=== PATIENT | female | born 2000 | race Caucasian/White ===

== ENCOUNTER 2021-02-19 12:07 | Inpatient (IN) | payer MEDICAID, SELFPAY ==
[2021-02-19 14:00] VITALS: BP 130/78; PULSE 82; RESP 18; TEMP 36.6; O2SAT 98
[2021-02-19 15:13] VITALS: BMI 15.4
--- NOTE | 2021-02-19 19:33 | PC.NURSE ---
PT NOTED TO BE WANDERING IN AND OUT OF OTHER PT'S ROOMS. PT IN 153-1 VOLUNTEERED TO ALLOW THIS PT TO MOVE INTO 153-2 SO SHE WONT HAVE TO BE ALONE. PT THEN MOVED TO 153-2.
[2021-02-19] MEDS: OLANZapine 5 mg ODT PO (20:19)
[2021-02-19 20:29] VITALS: BP 133/80; PULSE 66; RESP 17; TEMP 36.9; O2SAT 96
[2021-02-20 06:00] VITALS: RESP 15
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
[2021-02-20 14:00] VITALS: BP 99/65; PULSE 93; RESP 18; TEMP 37; O2SAT 96
--- NOTE | 2021-02-20 15:40 | PC.NURSE ---
pt snuck out the acute door when a visitor was leaving the unit. staff immediately responded. pt was in the entryway and stood in a corner by the bathroom acting very withdrawn. staff had to escort pt back onto the acute side unit with much encouragement
--- NOTE | 2021-02-20 16:35 | PC.NURSE ---
Patient was found naked in an empty bed in another patients room reading a book. Patient was easily redirected and moved to a room closer to the nurses station. Nurse will continue to monitor.
[2021-02-20] MEDS: OLANZapine 5 mg ODT PO (19:21)
[2021-02-20 19:44] VITALS: BP 108/71; PULSE 85; RESP 18; TEMP 36.8; O2SAT 98
[2021-02-21 06:00] VITALS: BP 117/84; PULSE 80; RESP 17; TEMP 37.1; O2SAT 97
--- NOTE | 2021-02-21 06:18 | PM.NPN ---
Subjective NPU Subjective: Interval history: Francia continues to struggle with her behaviors. Yesterday late afternoon she had a incident where she intentionally fell but the fall was absolutely witnessed and totally purposeful. Today she pulled a fire alarm. She continues to have these help seeking, help rejecting behaviors has had at least 2 events where she tried to enter areas where she was not supposed to be try to follow a visitor out. Very attention seeking behavior dermatitis given to her to discuss the circumstances she gets very Mousie and then says very little except maybe I am sorry. She shook her head no to possible discussion of mood stabilizer/antipsychotic. Mental Status Exam MSE Comments: This is an extremely underweight white female in hospital scrubs with limited grooming and abnormal eye contact. With eyes staring fixed at times. No abnormal movements except for significant psychomotor retardation. Mostly uncooperative with exam in moderate distress at times. Speech was limited and decreased rate and volume. Mood answered with barely audible unclear responses, affect odd. Thought process mostly organized. Thought content: Patient currently denying suicidal or homicidal ideation, there were no delusions reported but she seemed guarded, paranoid and may be having persecutory thinking, she denied auditory visual hallucinations but did at times appear to be attending to internal stimuli. Attention and concentration were limited and memory was unreliable but none were formally tested. She is alert and oriented to person and place. Insight and judgment are impaired and impulse control is impaired. Vitals/I&O/Wt Last Vital Signs Temp 98.3 F 02/20/21 19:44 Pulse 85 02/20/21 19:44 Resp 18 02/20/21 19:44 BP 108/71 02/20/21 19:44 Pulse Ox 98 02/20/21 19:44 Weight last 48 hrs Weight 40.823 kg A&P Assessment and plan (1) Borderline personality disorder: Status: Acute Additional A&P Information (1) Psychosis: (2) Altered mental status: (3) Partner relational problem: Additional A&P Information This is a 20-year-old white female with a recent history of multiple ER visits with sometimes strange behaviors and sometimes very little time in between the visits with strange behavior noted out in the community including attempts to get into vehicles at [employer] and walking in and out of traffic who presents acting bizarrely on the unit. 1. Continue current medication. Will explore starting an antipsychotic/mood stabilizer with her permission. 2. Encourage individual, group and milieu therapy. 3. Continue every 15 minute checks for safety. May have to initiate one-to-one if she continues to show poor judgment. 4. Explore whether there is a drug-induced element to this. Involuntary Hold Information 96 Hour Hold: 96 Hour Involuntary Admission: Yes 96 Hour Hold Ending Date: 02/23/21 96 Hour Hold Ending Time: 12:22 Attestations NPU Medical Necessity Statement*: Inpatient hospitalization is medically necessary and the clinically appropriate intervention at this time. Will monitor medications and make changes as indicated. Likely length of stay 3 to 5 days. Coding Level of Care Code Acute Broadcast Operations Technician for Oliver Fwd Diagnoses Borderline personality disorder F60.3
[2021-02-21 14:00] VITALS: BP 93/60; PULSE 104; RESP 17; TEMP 36.3; O2SAT 98
--- NOTE | 2021-02-21 15:19 | PC.NURSE ---
Patient Behavior At approximately 1500 patient pulled the fire alarm in the day room. Requested a sitter from warehouse distribution associate.
[2021-02-21] MEDS: sulfamethoxazole-trimeth DS 160-800 mg Tablet 1 TAB PO (18:04)
[2021-02-21] MEDS: sertraline 50 mg Tablet PO (20:03)
[2021-02-21 20:05] VITALS: BP 90/52; PULSE 67; RESP 15; TEMP 37; O2SAT 93
[2021-02-22 06:00] VITALS: BP 104/68; PULSE 79; RESP 16; TEMP 36.7; O2SAT 92
[2021-02-22] MEDS: sertraline 50 mg Tablet PO (08:56)
[2021-02-22] MEDS: sulfamethoxazole-trimeth DS 160-800 mg Tablet 1 TAB PO ×2 (08:56→20:13)
--- NOTE | 2021-02-22 11:49 | P.PN_ITS ---
Subjective NPU Subjective: Interval history: Melissa presented to the appointment wrapped in her blanket and being fairly isolative and occluded from the conversation. She continued the behavior of talking just audibly but not loud enough that the conversation can have a normal flow of a conversation. She had to be asked multiple times to repeat something, had to be asked multiple times to speak loud enough that what she said could be heard. We discussed our concerns and the possibility of starting a mood stabilizer/antipsychotic help with her situation and she understood and agreed proceed as documented in this note. She continued to have episodes where she got tearful and was saying she was sorry. Mental Status Exam MSE Comments: This is an extremely underweight white female in hospital scrubs with limited grooming and abnormal eye contact. With eyes staring fixed at times. No abnormal movements except for significant psychomotor retardation. Mostly uncooperative with exam in out to moderate distress at times. Speech was limited and decreased rate and volume. Mood answered with barely audible I do not know, affect odd. Thought process mostly organized. Thought content: Yuki ent currently denying suicidal or homicidal ideation, there were no delusions reported but she seemed guarded, paranoid and may be having persecutory thinking, she denied auditory visual hallucinations but did at times appear to be attending to internal stimuli. Attention and concentration were limited and memory was unreliable but none were formally tested. She is alert and oriented to person and place. Insight and judgment are impaired and impulse control is impaired. Vitals/I&O/Wt Last Vital Signs Temp 98.1 F 02/22/21 06:00 Pulse 79 02/22/21 06:00 Resp 16 02/22/21 06:00 BP 104/68 02/22/21 06:00 Pulse Ox 92 02/22/21 06:00 A&P Assessment and plan (1) Cluster B personality disorder: Status: Acute Additional A&P Information (2) Borderline personality disorder: (3) Psychosis: (4) Altered mental status: (5) Partner relational problem: Additional A&P Information This is a 20-year-old white female with a recent history of multiple ER visits with sometimes strange behaviors and sometimes very little time in between the visits with strange behavior noted out in the community including attempts to get into vehicles at [employer] and walking in and out of traffic who presents acting bizarrely on the unit. 1. Continue current medication. Will start Abilify 10 mg p.o. every morning for psychosis and or mood stabilization. 2. Encourage individual, group and milieu therapy. 3. Continue every 15 minute checks for safety. May have to initiate one-to-one if she continues to show poor judgment. 4. Explore whether there is a drug-induced element to this. Involuntary Hold Information 96 Hour Hold: 96 Hour Involuntary Admission: Yes 96 Hour Hold Ending Date: 02/23/21 96 Hour Hold Ending Time: 12:22 Attestations NPU Medical Necessity Statement*: Inpatient hospitalization is medically necessary and the clinically appropriate intervention at this time. Will monitor medications and make changes as indicated. Likely length of stay 3 to 5 days. Coding Level of Care Code Acute Chief Enterprise Architect for Oliver Prado Diagnoses Cluster B personality disorder F60.89
[2021-02-22] MEDS: ARIPiprazole 10 mg Tablet PO (12:50)
[2021-02-22 14:00] VITALS: BP 110/68; PULSE 86; RESP 16; TEMP 36.2; O2SAT 97
[2021-02-22 22:00] VITALS: BP 97/54; PULSE 83; RESP 16; TEMP 36.6; O2SAT 94
[2021-02-23 06:00] VITALS: BP 110/66; PULSE 101; RESP 15; TEMP 37.9; O2SAT 95
--- NOTE | 2021-02-23 06:13 | PC.NURSE ---
Behavior pt stayed in her room all night, denied all, very withdrawn, soft spoken, and gaze avoident. will continue to observe
[2021-02-23] MEDS: sulfamethoxazole-trimeth DS 160-800 mg Tablet 1 TAB PO ×2 (07:46→20:18)
[2021-02-23] MEDS: sertraline 50 mg Tablet PO (07:47)
[2021-02-23] MEDS: ARIPiprazole 10 mg Tablet PO (07:47)
[2021-02-23 14:00] VITALS: BP 109/74; PULSE 107; RESP 16; TEMP 36.7; O2SAT 92
--- NOTE | 2021-02-23 14:20 | PM.NPN ---
Subjective NPU Subjective: Interval history: Melissa presents today still really struggling with her help seeking help rejecting behavior with continued low level verbalization making it very hard to interact with her. However there are some signs of improvement and persistence on the part of the interview is getting some limited increased responsiveness. Since the initiation of the Abilify she does seem to be less isolative and more likely to speak up for herself. She finally agreed to get something to eat yesterday but does still continue to have some restrictive behavior at her very low BMI and was a noted episode of her being in the bathroom and attempting to throw up until restrictions on bathroom 30 minutes after meals was instituted. Mental Status Exam MSE Comments: This is an extremely underweight white female in hospital scrubs with some improved grooming and less abnormal eye contact. With eyes staring fixed at times, lessening. No abnormal movements except for continued psychomotor retardation, with some slight improvement. Mostly uncooperative with exam in mild distress at times. Speech was limited and decreased rate and volume. Mood answered with barely audible unclear response, affect odd. Thought process mostly organized. Thought content: Patient denied suicidal or homicidal ideation, there were no delusions reported but she seemed guarded, paranoid and may be having persecutory thinking, she denied auditory visual hallucinations. Attention and concentration were improving, but memory was unreliable but none were formally tested. She is alert and oriented to person and place. Insight and judgment are impaired and impulse control is impaired. Vitals/I&O/Wt Last Vital Signs Temp 100.2 F H 02/23/21 06:00 Pulse 101 H 02/23/21 06:00 Resp 15 02/23/21 06:00 BP 110/66 02/23/21 06:00 Pulse Ox 95 02/23/21 06:00 A&P Additional A&P Information (1) Cluster B personality disorder: Additional A&P Information (2) Borderline personality disorder: (3) Psychosis: (4) Altered mental status: (5) Partner relational problem: Additional A&P Information This is a 20-year-old white female with a recent history of multiple ER visits with sometimes strange behaviors and sometimes very little time in between the visits with strange behavior noted out in the community including attempts to get into vehicles at [employer] and walking in and out of traffic who presents acting bizarrely on the unit. 1. Continue current medication. 2. Encourage individual, group and milieu therapy. 3. Continue every 15 minute checks for safety. May have to initiate one-to-one if she continues to show poor judgment. 4. Explore whether there is a drug-induced element to this. Involuntary Hold Information 96 Hour Hold: 96 Hour Involuntary Admission: Yes 96 Hour Hold Ending Date: 02/23/21 96 Hour Hold Ending Time: 12:22 Attestations NPU Medical Necessity Statement*: Inpatient hospitalization is medically necessary and the clinically appropriate intervention at this time. Will monitor medications and make changes as indicated. Likely length of stay 3 to 5 days. Coding Level of Care Code Acute Calender Worker Helper for Oliver Prado
--- NOTE | 2021-02-23 15:16 | PC.NUTR ---
Follow-up to earlier re-assessment completed today: Nurse informed this RD that pt requesting fruit plate. Have added fruit plate with lunch and dinner to diet order at this time. See RD assessment for further details. Will follow-up as needed.
[2021-02-23 19:57] VITALS: BP 113/70; PULSE 78; RESP 18; TEMP 36.9; O2SAT 94
[2021-02-23] MEDS: hyDROXYzine 25 mg Capsule 50 MG PO (20:24)
[2021-02-23] MEDS: trazodone 50 mg Tablet PO (20:24)
--- NOTE | 2021-02-23 20:24 | PC.NURSE ---
PRN Medications Patient states she is feeling anxious and nervous, asks if she can have anything to help with this. Also requesting something to help her sleep this evening. See MAR for Vistaril and Trazodone administrations. Will monitor for effectiveness.
--- NOTE | 2021-02-23 21:00 | PC.NURSE ---
PRN follow up patient resting in bed with eyes closed. resp even and unlabored.
[2021-02-24 06:00] VITALS: BP 98/60; PULSE 68; RESP 15; TEMP 36.6; O2SAT 96
[2021-02-24] MEDS: ARIPiprazole 10 mg Tablet PO (08:38)
[2021-02-24] MEDS: sertraline 50 mg Tablet PO (08:38)
[2021-02-24] MEDS: sulfamethoxazole-trimeth DS 160-800 mg Tablet 1 TAB PO ×2 (08:38→21:01)
[2021-02-24 14:00] VITALS: BP 102/61; PULSE 75; RESP 14; TEMP 37.3; O2SAT 97
--- NOTE | 2021-02-24 17:39 | PM.NPN ---
Subjective NPU Subjective: Interval history: Melissa presents today reporting that she is feeling a little bit better. She still is demanding requests to speak up and to communicate better but there are clear signs of improvement and very incremental fashion. He only took 1 request for her to speak up at the nurses station to determine what she was actually needing. She answered the questions clearly today where I could see not even if it was a sign that acknowledgment as an answer. She was not hiding under the blanket. She denied being in any danger outside of the hospital or being the victim of any clear violence or sexual trafficking or anything she could not get out of. She endorsed that she was feeling a little better on medication but was somewhat resistant to claim any symptoms other than the disorganization that we are witnessing. She denies any history of current eating disorder behavior. Mental Status Exam MSE Comments: This is an extremely underweight white female in hospital scrubs with some improved grooming and less abnormal eye contact. No abnormal movements except for continued psychomotor retardation, with some slight improvement. More cooperative with exam in mild distress at times. Speech was limited and decreased rate and volume. Mood reported as okay, affect less odd but definitely subdued. Thought process mostly organized. Thought content: Patient denied suicidal or homicidal ideation, there were no delusions reported but she seemed guarded, paranoid and may be having persecutory thinking, she denied auditory visual hallucinations. Attention and concentration were improving, and memory appeared more reliable, but none were formally tested. She is alert and oriented to person and place. Insight and judgment are impaired, but improving and impulse control is impaired, but improving. Vitals/I&O/Wt Last Vital Signs Temp 99.1 F 02/24/21 14:00 Pulse 75 02/24/21 14:00 Resp 14 02/24/21 14:00 BP 102/61 02/24/21 14:00 Pulse Ox 97 02/24/21 14:00 A&P Additional A&P Information (1) Cluster B personality disorder: Additional A&P Information (2) Borderline personality disorder: (3) Psychosis: (4) Altered mental status: (5) Partner relational problem: Additional A&P Information This is a 20-year-old white female with a recent history of multiple ER visits with sometimes strange behaviors and sometimes very little time in between the visits with strange behavior noted out in the community including attempts to get into vehicles at [employer] and walking in and out of traffic who presents acting bizarrely on the unit. 1. Continue current medication. 2. Encourage individual, group and milieu therapy. 3. Continue every 15 minute checks for safety. 4. Explore whether there is a drug-induced element to this. Involuntary Hold Information 96 Hour Hold: 96 Hour Involuntary Admission: Yes 96 Hour Hold Ending Date: 02/23/21 96 Hour Hold Ending Time: 12:22 Attestations NPU Medical Necessity Statement*: Inpatient hospitalization is medically necessary and the clinically appropriate intervention at this time. Will monitor medications and make changes as indicated. Likely length of stay 3 to 5 days. Coding Level of Care Code Acute Steam Pipe Fitter for Oliver Prado
[2021-02-24 20:54] VITALS: BP 107/77; PULSE 94; RESP 17; TEMP 36.9; O2SAT 99
[2021-02-25] MEDS: hyDROXYzine 25 mg Capsule 50 MG PO ×2 (02:30→20:37)
--- NOTE | 2021-02-25 02:31 | PC.NURSE ---
Patient came to nurses station C? anxiety and sleeplessness. Vistaril 50mg PO given.
[2021-02-25 06:00] VITALS: BP 85/51; PULSE 72; RESP 16; TEMP 36.8; O2SAT 97
[2021-02-25] MEDS: sertraline 50 mg Tablet PO (07:56)
[2021-02-25] MEDS: sulfamethoxazole-trimeth DS 160-800 mg Tablet 1 TAB PO ×2 (07:56→20:37)
[2021-02-25] MEDS: ARIPiprazole 10 mg Tablet PO (07:56)
[2021-02-25 14:00] VITALS: PULSE 97; RESP 17; TEMP 36.9; O2SAT 96
[2021-02-25] MEDS: ARIPiprazole 10 mg Tablet 5 MG PO (14:28)
--- NOTE | 2021-02-25 15:20 | P.PN_ITS ---
Subjective NPU Subjective: Interval history: Melissa presents today doing a little more tender and withdrawn than yesterday. We discussed the risks, benefits and alternatives of increasing her Abilify to 50 mg p.o. every morning and starting prazosin 1 mg p.o. nightly for nightmares which she had discussed and she understood and agreed proceed as is documented in this note. She continued to need reinforcement and redirection to get her to communicate at a volume that was audible. She denied any other major issues. Mental Status Exam MSE Comments: This is an extremely underweight white female in hospital scrubs with some improved grooming and less abnormal eye contact. No abnormal movements except for continued psychomotor retardation, with some slight improvement. More cooperative with exam in mild distress at times. Speech was limited and decreased rate and volume. Mood reported as okay, affect odd but definitely subdued. Thought process mostly organized. Thought content: Patient denied suicidal or homicidal ideation, there were no delusions reported but she seemed guarded, paranoid and may be having persecutory thinking, she denied auditory visual hallucinations. Attention and concentration were improving, and memory appeared more reliable, but none were formally tested. She is alert and oriented to person and place. Insight and judgment are impaired, but improving and impulse control is impaired, but improving. Vitals/I&O/Wt Last Vital Signs Temp 98.6 F 02/25/21 21:41 Pulse 102 H 02/25/21 21:41 Resp 15 02/25/21 21:41 BP 114/80 02/25/21 21:41 Pulse Ox 96 02/25/21 21:41 Weight last 48 hrs Weight 40.823 kg A&P Additional A&P Information (1) Cluster B personality disorder: Additional A&P Information (2) Borderline personality disorder: (3) Psychosis: (4) Altered mental status: (5) Partner relational problem: Additional A&P Information This is a 20-year-old white female with a recent history of multiple ER visits with sometimes strange behaviors and sometimes very little time in between the visits with strange behavior noted out in the community including attempts to get into vehicles at [employer] and walking in and out of traffic who presents acting bizarrely on the unit. 1. Continue current medication. We will increase Abilify to 15 mg p.o. every morning and start prazosin 1 mg p.o. nightly. 2. Encourage individual, group and milieu therapy. 3. Continue every 15 minute checks for safety. 4. Explore whether there is a drug-induced element to this. Involuntary Hold Information 96 Hour Hold: 96 Hour Involuntary Admission: Yes 96 Hour Hold Ending Date: 02/23/21 96 Hour Hold Ending Time: 12:22 Attestations NPU Medical Necessity Statement*: Inpatient hospitalization is medically necessary and the clinically appropriate intervention at this time. Will monitor medications and make changes as indicated. Likely length of stay 3 to 5 days. Coding Level of Care Code Acute Head Of Quality for Oliver Prado
[2021-02-25] MEDS: trazodone 50 mg Tablet PO (20:37)
[2021-02-25] MEDS: prazosin 1 mg Capsule PO (20:37)
[2021-02-25] MEDS: nicotine 2 mg Gum BUCCAL (20:44)
--- NOTE | 2021-02-25 21:33 | PC.NURSE ---
2036 Pt requested Trazadone 50mg PO and Vistaril 50mg po for sleep and anxiety. 2043 requested Nicotine Gum
[2021-02-25 21:41] VITALS: BP 114/80; PULSE 102; RESP 15; TEMP 37; O2SAT 96
[2021-02-26] MEDS: OLANZapine 5 mg ODT PO (00:20)
--- NOTE | 2021-02-26 00:22 | PC.NURSE ---
0022 pt at nurses station requesting something for anxiety/sleep . Pt stated I had a bad dream. Zyprexa 5mg Po given
[2021-02-26 06:00] VITALS: BP 83/61; PULSE 63; RESP 15; TEMP 36.8; O2SAT 97
[2021-02-26] MEDS: ARIPiprazole 10 mg Tablet 15 MG PO (09:26)
[2021-02-26] MEDS: sulfamethoxazole-trimeth DS 160-800 mg Tablet 1 TAB PO ×2 (09:26→20:53)
[2021-02-26] MEDS: sertraline 50 mg Tablet PO (09:27)
--- NOTE | 2021-02-26 11:27 | P.PN_ITS ---
Subjective NPU Subjective: Interval history: Melissa presents today reporting that she is not sure how she did with the prazosin and nightmares at night. She reports that she is going fine with the increase in the Abilify but was fairly nonverbal today, taking a step backwards again. She was not very interactive and required multiple prompts for questions to be answered. She is laying in bed isolative and disengaged. Mental Status Exam MSE Comments: This is an extremely underweight white female in hospital scrubs with some improved grooming and limited eye contact. No abnormal movements except for continued psychomotor retardation. More cooperative with exam in no acute distress. Speech was limited and decreased rate and volume. Mood not responded to, affect appearing sleepy/subdued. Thought process mostly organized. Thought content: Patient denied suicidal or homicidal ideation, there were no delusions reported but she seemed guarded, paranoid and may be having persecutory thinking, she denied auditory visual hallucinations. Attention and concentration were limited, and memory appeared unreliable, but none were formally tested. She is alert and oriented to person and place. Insight and judgment are impaired and impulse control is impaired, but improving. Vitals/I&O/Wt Last Vital Signs Temp 98.2 F 02/26/21 06:00 Pulse 63 02/26/21 06:00 Resp 15 02/26/21 06:00 BP 83/61 02/26/21 06:00 Pulse Ox 97 02/26/21 06:00 Weight last 48 hrs Weight 40.823 kg A&P Additional A&P Information (1) Cluster B personality disorder: Additional A&P Information (2) Borderline personality disorder: (3) Psychosis: (4) Altered mental status: (5) Partner relational problem: Additional A&P Information This is a 20-year-old white female with a recent history of multiple ER visits with sometimes strange behaviors and sometimes very little time in between the visits with strange behavior noted out in the community including attempts to get into vehicles at [employer] and walking in and out of traffic who presents acting bizarrely on the unit. 1. Continue current medication. 2. Encourage individual, group and milieu therapy. 3. Continue every 15 minute checks for safety. 4. Explore whether there is a drug-induced element to this. Involuntary Hold Information 96 Hour Hold: 96 Hour Involuntary Admission: Yes 96 Hour Hold Ending Date: 02/23/21 96 Hour Hold Ending Time: 12:22 Attestations NPU Medical Necessity Statement*: npatient hospitalization is medically necessary and the clinically appropriate intervention at this time. Will monitor medications and make changes as indicated. Likely length of stay 3 to 5 days. Coding Level of Care Code Acute Administrative Resident for Oliver Prado
[2021-02-26 14:00] VITALS: BP 86/49; PULSE 95; RESP 16; TEMP 36.2; O2SAT 95
[2021-02-26] MEDS: nicotine 2 mg Gum BUCCAL ×2 (14:23→18:01)
[2021-02-26] MEDS: hyDROXYzine 25 mg Capsule 50 MG PO (20:52)
[2021-02-26] MEDS: prazosin 1 mg Capsule PO (20:53)
[2021-02-26 22:00] VITALS: BP 112/81; PULSE 100; RESP 16; TEMP 36.8; O2SAT 96
[2021-02-26] MEDS: bisacodyl 5 mg Tablet 10 MG PO (22:36)
[2021-02-27 06:00] VITALS: BP 95/57; PULSE 61; RESP 15; TEMP 36.4; O2SAT 97
[2021-02-27] MEDS: ARIPiprazole 10 mg Tablet 15 MG PO (08:56)
[2021-02-27] MEDS: sertraline 50 mg Tablet PO (08:57)
[2021-02-27] MEDS: sulfamethoxazole-trimeth DS 160-800 mg Tablet 1 TAB PO ×2 (08:57→21:02)
--- NOTE | 2021-02-27 13:42 | P.PN_ITS ---
Subjective NPU Subjective: Interval history: Melissa presents today lying in bed and continues to be isolative. However in the middle of the interview she sat up and spoken a lot of at home. She endorsed that she would like to go and stay in her uncles RV. She reported that she would like us to discharge tomorrow. But she does endorse depression. We discussed the risk benefits and alternatives of starting Remeron 15 mg p.o. nightly and she understood and agreed to proceed as is documented in this note. We discussed the fact that if she shows improvement we could discuss possible discharge tomorrow. Mental Status Exam MSE Comments: This is an extremely underweight white female in hospital scrubs with some improved grooming and limited eye contact. No abnormal movements except for continued psychomotor retardation. More cooperative with exam in no acute distress. Speech was more spontaneous with periods of more normal rate and volume but in general decreased rate and volume. Mood a little better but still depressed, affect appearing sleepy/subdued. Thought process mostly organized. Thought content: Patient denied suicidal or homicidal ideation, there were no delusions reported but she seemed guarded, paranoid and may be having persecutory thinking, she denied auditory visual hallucinations. Attention and concentration were more appropriate and memory appeared reliable, but none were formally tested. She is alert and oriented to person and place. Insight and judgment are limited, but improving, and impulse control is improving. Vitals/I&O/Wt Last Vital Signs Temp 97.5 F L 02/27/21 06:00 Pulse 61 02/27/21 06:00 Resp 15 02/27/21 06:00 BP 95/57 02/27/21 06:00 Pulse Ox 97 02/27/21 06:00 A&P Additional A&P Information (1) Cluster B personality disorder: Additional A&P Information (2) Borderline personality disorder: (3) Psychosis: (4) Altered mental status: (5) Partner relational problem: Additional A&P Information This is a 20-year-old white female with a recent history of multiple ER visits with sometimes strange behaviors and sometimes very little time in between the visits with strange behavior noted out in the community including attempts to get into vehicles at [employer] and walking in and out of traffic who presents acting bizarrely on the unit. 1. Continue current medication. Start Remeron 15 mg p.o. nightly. 2. Encourage individual, group and milieu therapy. 3. Continue every 15 minute checks for safety. Involuntary Hold Information 96 Hour Hold: 96 Hour Involuntary Admission: Yes 96 Hour Hold Ending Date: 02/23/21 96 Hour Hold Ending Time: 12:22 Attestations NPU Medical Necessity Statement*: Inpatient hospitalization is medically necessary and the clinically appropriate intervention at this time. Will monitor medicat ions and make changes as indicated. Likely length of stay 1-3 days. Coding Level of Care Code Acute Government Documents Librarian for Oliver Prado
[2021-02-27 14:00] VITALS: BP 130/87; PULSE 81; RESP 17; TEMP 36.3; O2SAT 98
[2021-02-27] MEDS: mirtazapine 15 mg Tablet PO (21:02)
[2021-02-27] MEDS: prazosin 1 mg Capsule PO (21:02)
[2021-02-27 22:00] VITALS: BP 114/72; PULSE 77; RESP 15; TEMP 37.1; O2SAT 100
[2021-02-28 06:00] VITALS: BP 87/51; PULSE 86; RESP 17; TEMP 36.6; O2SAT 96
[2021-02-28] MEDS: ARIPiprazole 10 mg Tablet 15 MG PO (09:10)
[2021-02-28] MEDS: sertraline 50 mg Tablet PO (09:10)
[2021-02-28] MEDS: sulfamethoxazole-trimeth DS 160-800 mg Tablet 1 TAB PO (09:13)
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
[2021-02-28 12:28] VITALS: BP 87/51; PULSE 86; RESP 17; TEMP 36.6; O2SAT 96
[2021-02-28] MEDS: acetaminophen 325 mg Tablet 650 MG PO (13:16)
== END 2021-02-28 17:18 | disposition home or self-care (01) | DRG 885 ==
PROVIDERS: Admitting Provider Psychiatry & Neurology Psychiatry; Visit Provider Psychiatry & Neurology Psychiatry
DX: F29 Unspecified psychosis not due to a substance or known physiological condition (principal); Z63.0 Problems in relationship with spouse or partner; F60.3 Borderline personality disorder; F60.89 Other specific personality disorders